=== PATIENT | female | born 1975 | race Caucasian/White ===

== ENCOUNTER 2019-03-07 13:12 | Emergency (ER) | payer SELFPAY ==
[~2019-03-07] VITALS: Ht 160 cm; Wt 73.0 kg
[2019-03-07] MEDS ORDERED: IBUPROFEN 600MG TABLET PO ONE (16:00)
[2019-03-07 16:10] VITALS: BP 120/88
== END 2019-03-07 16:20 | disposition home or self-care (01) ==
LOC: ER 13:43
DX: S93.401A Sprain of unspecified ligament of right ankle, initial encounter (principal); W18.49XA Other slipping, tripping and stumbling without falling, initial encounter; Y93.01 Activity, walking, marching and hiking; Y92.018 Other place in single-family (private) house as the place of occurrence of the external cause; R03.0 Elevated blood-pressure reading, without diagnosis of hypertension
CPT/HCPCS: 73610; 81025; 99283; Z7610

== ENCOUNTER 2020-07-14 01:56 | Emergency (ER) | payer SELFPAY ==
[~2020-07-14] VITALS: Ht 160 cm; Wt 77.2 kg
[2020-07-14 02:03] VITALS: BP 120/79
== END 2020-07-14 03:00 | disposition left against medical advice (07) ==
LOC: ER 02:26
DX: R68.89 Other general symptoms and signs (principal); Z53.21 Procedure and treatment not carried out due to patient leaving prior to being seen by health care provider